=== PATIENT | female | born 1960 | race Caucasian/White ===

== ENCOUNTER 2017-01-05 21:49 | Emergency (ER) | payer OTHER ==
[~2017-01-05] VITALS: Ht 167.6 cm; Wt 82.0 kg
[2017-01-05 21:53] VITALS: Ht 167.6 cm; Wt 82.0 kg
[2017-01-05] MEDS ORDERED: ONDANSETRON 4 MG INJ ONE (23:07)
[2017-01-05] MEDS: morphine 10 MG INJ IM ONE ×2 (23:08→23:12)
[2017-01-05] MEDS ORDERED: morphine 4 MG/ML VIAL IV STA (23:08)
[2017-01-05] MEDS ORDERED: ONDANSETRON 4 MG INJ IV STA (23:08)
--- NOTE | 2017-01-05 23:12 | ERD ---
ER Documentation Chief Complaint Date/Time DATE: 01/05/17 TIME: 23:10 Chief Complaint left shoulder injury and hit head, no loc sp fall from shower HPI Female who presents with sudden onset, moderate to severe, aching pain to the left shoulder after slipping in the shower and landing on her left side. She does state that she had her ahead, but denies headache. She denies taking blood thinners or antiplatelet agents. She denies vomiting or loss of consciousness. ROS All systems reviewed and are negative except as per history of present illness. Medications Home Meds Active Scripts Famotidine* (Famotidine*) 20 Mg Tablet, 20 MG PO DAILY, #30 TAB Prov:PAYAM KENNY MD 01/06/17 Ondansetron HCl (Zofran) 4 Mg/5 Ml Solution, 4 MG PO Q8 Y for NAUSEA, #20 Prov:PAYAM KENNY MD 01/06/17 Oxycodone HCl/Acetaminophen (Percocet 5-325 mg Tablet) 1 Each Tablet, 1 EACH PO Q6 Y for PAIN LEVEL 7-10, #20 TAB Prov:PAYAM KENNY MD 01/06/17 Allergies Allergies: Coded Allergies: No Known Allergy (Unverified , 01/05/17) PMhx/Soc Past medical history: None Past surgical history: None Social history: Denies tobacco or alcohol. FmHx Family History: No coronary disease, No diabetes Physical Exam Vitals Vital Signs Date Time Temp Pulse Resp B/P Pulse Ox O2 Delivery O2 Flow Rate FiO2 01/05/17 23:26 98.1 64 20 137/68 97 Room Air 01/05/17 21:53 98.4 69 20 149/67 98 Physical Exam Const: Alert, in moderate distress Head: Atraumatic Eyes: Normal Conjunctiva, no pallor, no icterus ENT: Normal External Ears, Nose and Mouth. Neck: Full range of motion..~ No meningismus. No midline tenderness Resp: Clear to auscultation bilaterally, no wheezes, no rales Cardio: Regular rate and rhythm, no murmurs Abd: Soft, non tender, non distended. Normal bowel sounds Skin: No petechiae or rashes Back: No midline or flank tenderness Ext: No cyanosis, or edema. Deformity to the left clavicle. Skin intact, no tenting. 2+ radial pulse, mild tenderness over the humeral head. No depression of humeral head. Neur: Awake and alert. Strength and sensation intact in median, radial, ulnar distribution in the left arm. Psych: Normal Mood and Affect Results 24 hrs Current Medications Medications (Trade) Dose Ordered Sig/Ashly Route PRN Reason Start Time Stop Time Status Last Admin Dose Admin Morphine Sulfate (morphine) 8 mg ONCE ONCE IM 01/05/17 23:30 01/05/17 23:30 DC 01/05/17 23:12 Ondansetron HCl (Zofran Inj) 4 mg STK-MED ONCE .ROUTE 01/05/17 23:07 01/05/17 23:08 DC Morphine Sulfate (morphine) 4 mg ONCE STAT IV 01/05/17 23:08 01/05/17 23:10 DC Ondansetron HCl (Zofran Inj) 4 mg ONCE STAT IV 01/05/17 23:08 01/05/17 23:10 DC 01/05/17 23:12 Famotidine (Pepcid Iv) 20 mg ONCE ONCE IV 01/06/17 00:30 01/06/17 00:31 DC 01/06/17 00:10 Famotidine (Pepcid Iv) 20 mg ONCE ONCE IV 01/06/17 00:30 01/06/17 00:30 DC Procedures/MDM MDM: Patient is a 56-year-old female who had a slip and fall in the shower and sustained trauma to her left shoulder. X-ray shows a clavicle shaft fracture. The patient is right-hand dominant. She is neurovascularly intact. There is no evidence of other fracture or injury. There is no skin tenting. The patient did state that she struck her head, but has no findings that are concerning for intracranial injury. She has no headaches, vomiting, loss of consciousness, or use of blood thinners. She had no significant neck tenderness but due to concern for distracting injury and x-ray was performed and shows no fracture. The patient was placed in a shoulder sling, and was advised to call her PMD tomorrow to arrange for close follow-up with an orthopedic surgeon. The patient does state that she has a primary care physician. Patient will be prescribed Percocet for pain, Zofran for nausea and Pepcid for gastric upset, which she is experienced before with narcotic pain medications. I will also provide her with a note for work. Advised on return precautions for new or worsening symptoms. The patient's pain was well- controlled after receiving a single dose of morphine. Departure Diagnosis: Primary Impression: Clavicle fracture Encounter type: initial encounter Clavicle location: shaft Fracture type: closed Fracture alignment: displaced Laterality: left Qualified Code: S42.022A - Closed displaced fracture of shaft of left clavicle, initial encounter Condition: Stable PAYAM KENNY MD January 05, 2017 23:12
[2017-01-05 23:26] VITALS: BP 137/68; PULSE 64; RESP 20; TEMP 98.1
--- NOTE | 2017-01-05 23:47 | RADRPT ---
PROCEDURE: Portable chest x-ray. CLINICAL INDICATION: Injury, chest pain. TECHNIQUE: Portable AP view of the chest. COMPARISON: None. FINDINGS: There are slightly low lung volumes, limiting evaluation of the pulmonary vessels. No pulmonary cono lidation is identified. The cardiac silhouette is enlarged. No pleural effusion is seen. There is no pneumothorax. There is a comminuted fracture of the middle third of the left clavicle. IMPRESSION: 1. Comminuted fracture of the middle third of the left clavicle. 2. Slightly low lung volumes. 3. Enlarged cardiac silhouette. RPTAT: HTAR .Waylon Bauer MD, MD Date Time Electronically viewed and signed by .Waylon Bauer MD, on 01/05/2017 23:47 .R/
--- NOTE | 2017-01-05 23:59 | RADRPT ---
PROCEDURE: XR left Shoulder. CLINICAL INDICATION: Trauma. Pain. TECHNIQUE: Three views of the left shoulder are available for review. COMPARISON: None available FINDINGS: There is acute comminuted fracture of the middle third diaphysis of the clavicle with 1.5 cm inferio r displacement of the distal fracture fragment. No other fractures identified.. The glenohumeral savan[place] int is unremarkable. The acromioclavicular joint is intact. The visualized portions of the upper left rib cage are unremarkable. No radiopaque foreign body is identified. Bone mineralization is w ithin normal limits. Soft tissues are unremarkable. IMPRESSION: 1. Comminuted fracture mid diaphysis of the left clavicle with inferior displacement of the distal fracture fragment.. 2. No glenohumeral acute fracture or dislocation is seen. RPTAT: HMVK .Scar Snyder MD, MD Date Time Electronically viewed and signed by .Scar Snyder MD, MD on 01/05/2017 23:59 .K/
--- NOTE | 2017-01-06 00:04 | RADRPT ---
PROCEDURE: Cervical spine. CLINICAL INDICATION: Neck pain. TECHNIQUE: Three views including AP, lateral and odontoid views of the cervical spine were perfor med. The images were reviewed on a PACS workstation. COMPARISON: None. FINDINGS: There is no acute fracture or subluxation. Cervical vertebral body heights and alignment are within normal limits. There is mild loss of disk height at C6-C7 with small anterior marginal osteophytes present. The visualized dens and lateral masses are unremarkable. Prevertebral soft tissues are u nremarkable. IMPRESSION: No acute fracture or subluxation. 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 .Douglas Lantigua MD, Date Time Electronically viewed and signed by .Douglas Lantigua MD, MD on 01/06/2017 00:03 .T/
[2017-01-06] MEDS ORDERED: ONDA4SOL2 PO (00:20)
[2017-01-06] MEDS ORDERED: FAMO20TA18 PO (00:20)
[2017-01-06] MEDS ORDERED: OXYC-279 PO (00:20)
[2017-01-06] MEDS ORDERED: FAMOTIDINE 20 MG INJ IV ONE ×2 (00:30)
== END 2017-01-06 00:46 | disposition home or self-care (01) ==
LOC: E/R 21:49 → FTE 01-06 00:46
DX: S42.022A Displaced fracture of shaft of left clavicle, initial encounter for closed fracture (principal); W18.2XXA Fall in (into) shower or empty bathtub, initial encounter; Y92.9 Unspecified place or not applicable
CPT/HCPCS: 71010; 72050; 73030; 96372; 96374; 96375; J2270; J2405; Z7502; Z7610